=== PATIENT | female | born 1965 | race Caucasian/White ===

== ENCOUNTER 2020-04-24 07:07 | Outpatient (CLI) | payer OTHER, SELFPAY ==
[2020-04-25 12:28] LABS: COVID-19 RT-PCR Result NEGATIVE (Negative)
== END 2020-04-24 07:27 ==
PROVIDERS: Visit Provider Family Medicine
DX: Z11.59 Encounter for screening for other viral diseases (principal); R05 Cough
CPT/HCPCS: U0003

== ENCOUNTER 2020-12-05 02:54 | Observation (INO) | payer OTHER, SELFPAY ==
[2020-12-05] VITALS (24 sets, daily range): BP systolic 91–153; BP diastolic 51–93; PULSE 66–84; RESP 11–24; TEMP 36.3–37.4; O2SAT 96–100
--- NOTE | 2020-12-05 03:00 | DI.CT_ITS ---
EXAM: CT ABDOMEN PELVIS W CLINICAL HISTORY: right lower abdomen pain. TECHNIQUE: Imaging Protocol: Axial computed tomography images with coronal and sagittal reformatted images were created and reviewed CONTRAST MATERIAL: Intravenous: Omnipaque 100cc Oral: None COMPARISON: No exams were available for comparison FINDINGS: VISUALIZED LUNG BASES: No nodules nor pleural effusions evident. ABDOMEN: LIVER: There are no focal hepatic lesions evident . GALLBLADDER/BILIARY: No obvious gallbladder pathology. CBD is not dilated. PANCREAS: No evidence of pancreatic mass nor dilatation of the pancreatic duct. SPLEEN: Spleen is not enlarged. No obvious intrasplenic lesions. Splenic and portal veins are paten t. ADRENALS: There are no significant adrenal masses. KIDNEYS:No cysts evident. No solid renal masses. No calculi nor hydronephrosis.. ABDOMINAL AORTA: Abdominal aorta is not enlarged. LYMPH NODES:There is no retroperitineal nor paraaortic adenopathy. ABDOMINAL WALL/GI: No evidence of significant anterior abdominal wall hernia. PELVIS: GI: The appendix is swollen-abnormal appearing. It exhibits a diameter of 10 millimeters. Suspiciou s for appendicitis. There is also some surrounding fluid just in a in this region. No distinct absc ess.No evidence of sigmoid diverticulitis. LYMPH NODES: There is no intrapelvic nor inguinal adenopathy. REPRODUCTIVE: Age-appropriate URINARY BLADDER: No calculi nor obvious masses evident OSSEOUS: No significant osseous lesions. Dilated parauterine veins are noted in both sides of the pelvis, more so on the left side and this dr ains into a prominent left gonadal vein which itself drains into the pre aortic left renal vein. Thi s may represent pelvic congestion syndrome. IMPRESSION: 1. Findings are consistent with acute appendicitis. There is small amount of fluid around the append ix and in the cul-de-sac. 2. Pelvic congestion syndrome RADIATION DOSE DELIVERED: 540.59mGy.cm Total DLP DATA REPOSITORY: All CT scans at this facility are submitted to the National Radiology Data Registry (NRDR) Dose Index Registry (DIR) with the [employer] (ACR). RADIATION OPTIMIZATION: All CT scans at this facility use at least one of these dose optimization te chniques: automated exposure control; mA and/or kV adjustment per patient size (includes targeted exa ms where dose is matched to clinical indication); or iterative reconstruction.
[2020-12-05 03:39] LABS: Abs Immature Grans 0.03 10^3/uL (0.0-0.06); Absolute Basophil Count 0.09 10^3/uL (0.0-0.2); Absolute Eosinophil Count 0.17 10^3/uL (0.0-0.7); Absolute Monocyte Count 0.88 10^3/uL (0.1-0.8); Basophils % 0.8; Eosinophils % 1.5; HGB 11.7 g/dL (11.2-15.7); Immature Grans % 0.3; Lymphocytes % 12.5; MCH 32.1 pg (27.0-33.0); MCHC 33.4 % (32.0-36.0); MCV 95.9 fL (80-95); MPV 9.9 fL (8.0-11.0); Monocytes % 7.9; Nucleated RBC 0 %; Platelet Count 231 10^3/uL (130-400); RBC 3.65 10^6/uL (3.93-5.22); RDW 13.6 % (11.7-14.6); RDW-SD 48.4 fL; WBC 11.16 10^3/uL (4.4-10.8)
--- NOTE | 2020-12-05 03:40 | ED.GENADUL_ITS ---
Discharge Plan Disposition Patient Disposition: [facility] INPATIENT Condition: Stable Discharge Details Chief Complaint: Abd Prob Clinical Impression: Acute appendicitis Primary Care Provider: Loraine,Local ED Provider: Paul Romero Home Meds and New Rx's Prescriptions: No Action valacyclovir 500 mg Tablet 500 mg PO DAILY RF: 0 rizatriptan 10 mg Tablet,Disintegrating 10 mg PO PRN PRNRF: 0 pantoprazole 40 mg Tablet,Delayed Release (Dr/Ec) 40 mg PO BID RF: 0 bupropion HCl 300 mg Tablet Extended Release 24 Hr 300 mg PO DAILY RF: 0 nitrofurantoin 50 mg Capsule 50 mg PO PRN PRNRF: 0 Medical Decision Making 55 yo female who denies prior abdominal surgery comes in with mid to right lower abdomen pain since yesterday afternoon. Denies vomit, fevers or urinary symptoms nor chest pain or dyspnea. She denies having pain like this in the past. She localizes the pain to the right lower abdomen on exam and is tender here with some mild tenderness in the ruq, no pompa's sign and no peritoneal findings. Concern for possible appendicitis, will obtain labs and ct. No pain out of proportion to exam so doubt mesenteric ischemia pt remains stable, ct confirms appendicitis, spoke with Dr. Mejias who accepts for admission Differential Diagnosis Differential Diagnosis: appendicitis, kidney stone Imaging Data Radiologic Study: Attestation: I personally reviewed and interpreted this imaging study as follows: Imaging: X-Ray Radiologist's impression: appendicitis Lab Data Lab results reviewed: Yes I reviewed the patient's lab results. HPI General Mode of arrival: ambulatory . Date/Time Provider Initiated Documentation: 12/05/20 02:59 . Limitations to Documentation: no limitations . Information obtained by: patient . History of Present Illness 55 year old F presents to the emergency department with the chief complaint of abdominal pain, described as moderate, and it has been constant. No relieving factors improve symptom(s), No exacerbating factors reported . Patient notes no other symptoms.. Patient did receive the following treatments prior to arrival, none Related Data Home Medications Medication Instructions Recorded Confirmed bupropion HCl 300 mg PO DAILY 12/05/20 12/05/20 nitrofurantoin 50 mg PO PRN PRN 12/05/20 12/05/20 pantoprazole 40 mg PO BID 12/05/20 12/05/20 rizatriptan 10 mg PO PRN PRN 12/05/20 12/05/20 valacyclovir 500 mg PO DAILY 12/05/20 12/05/20 General Stated Complaint: Abd Prob DIYA: 3 Review of Systems All systems reviewed & are unremarkable except as noted in HPI and below Constitutional Constitutional: Denies chills, Denies fever(s) and Denies weakness Cardiovascular Cardiovascular: Denies chest pain and Denies dyspnea Respiratory Respiratory: Denies cough and Denies dyspnea Gastrointestinal Gastrointestinal: Denies vomiting Genitourinary Genitourinary: Denies dysuria Neurologic Neurologic: Denies weakness PFSH Social History Smoking/Tobacco Use Status: Never Smoking risk assessment performed?: Yes Alcohol Intake: current Alcohol Intake frequency: a few times a month Substance use type: does not use Do you feel safe at home: Yes Exam Const General: no acute distress Orientation: alert HENMT Head: normal to inspection Ears: external ears normal General nose exam: external nose normal Mouth: moist mucous membranes Eyes General: appearance normal, both eyes and all related structures Neck Neck: normal visual inspection Resp Effort & Inspection: normal respiratory effort and able to speak in complete sentences Cardio Rate: regular rate GI Palpation: soft, not rigid and tender Skin General skin exam: no rashes or lesions noted Neuro General: patient alert and patient oriented x3 Extrem General: normal to inspection Psych Mental Status: mental status grossly normal Course Vital Signs Vital signs: Vital Signs Temperature 36.5 C 12/05/20 03:00 Temperature 36.5 C 12/05/20 03:00 Temperature Source Tympanic 12/05/20 03:00 Respiratory Effort Non-Labored 12/05/20 03:00 Pain Level 5 12/05/20 03:00
[2020-12-05 03:42] LABS: Absolute Neutrophil Count 8.59 10^3/uL (1.2-6.7)
[2020-12-05] MEDS: Normal Saline - Diluent 50 ML VIAL IV (03:47)
[2020-12-05] MEDS: Normal Saline Flush 10 ML SYR IVP ×3 (03:47→18:23)
[2020-12-05 03:50] LABS: ALT 34 U/L (14-59); AST 19 U/L (15-37); Albumin 3.9 g/dL (3.4-5.0); Alkaline Phosphatase 59 U/L (46-116); Anion Gap 9.5 mmol/L (3-11); BUN 17 mg/dL (7-18); Bilirubin, Direct 0.1 mg/dL (0.0-0.2); Bilirubin, Total 0.5 mg/dL (0.2-1.0); CO2 27.5 mmol/L (21.0-32.0); CREATININE 0.9 mg/dL (0.55-1.02); Calcium 9.2 mg/dL (8.5-10.1); Chloride 104 mmol/L (98-107); Glucose 121 mg/dL (74-106); Lipase 105 U/L (73-393); Potassium 3.6 mmol/L (3.5-5.1); Sodium 141 mmol/L (136-145); Total Protein 7.3 g/dL (6.4-8.2)
[2020-12-05 03:50] LABS: Bilirubin Negative (Negative); Blood Trace-intact (Negative); Clarity Clear (Clear); Glucose Negative (Negative); Ketones Negative (Negative); Leukocyte Esterase Negative (Negative); Nitrite Negative (Negative); Specific Gravity 1.015 (1.005-1.025); Urobilinogen 0.2 EU/dL (Up TO 0.2)
[2020-12-05 03:53] LABS: INR 1.1 (0.9-1.1); PTT Activated 25.6 sec (21.0-27.5); Prothrombin Time 10.7 sec (9.3-11.0)
[2020-12-05 04:01] LABS: Bacteria Rare HPF (Negative); C & S Indicated? No; Casts Negative LPF (Negative); Crystals Negative HPF (Negative); Epithelial Cells Rare HPF (Negative); Mucus Negative (Negative); RBC 0-2 HPF (0-2); WBC 0-2 HPF (0-5)
--- NOTE | 2020-12-05 04:09 | DI.VRAD_ITS ---
Addendum created by Popeye Falcon MD on 12/05/2020 4:45:46 AM EDT: THIS REPORT CONTAINS FINDINGS THAT MAY BE CRITICAL TO PATIENT CARE. The findings were verbally communicated via telephone conference with Paul Romero at 4:45 AM EDT on 12/05/2020. The findings were acknowledged and understood. Initial report created on 12/05/2020 4:09:17 AM EDT: PROCEDURE INFORMATION: Exam: CT Abdomen And Pelvis With Contrast Exam date and time: 12/05/2020 3:36 AM Age: 55 years old Clinical indication: Other: Plq ans epigastric pain; Patient HX: Rlq pain and mid abdominal pain below sternum down through pelvis TECHNIQUE: Imaging protocol: Computed tomography of the abdomen and pelvis with contrast. Contrast material: VISIPAQUE 320; Contrast volume: 77 ml; Contrast route: INTRAVENOUS (IV); COMPARISON: No relevant prior studies available. FINDINGS: Liver: Normal. No mass. Gallbladder and bile ducts: Normal. No calcified stones. No ductal dilation. Pancreas: Normal. No ductal dilation. Spleen: Normal. No splenomegaly. Adrenal glands: Normal. No mass. Kidneys and ureters: Normal. No hydronephrosis. Stomach and bowel: Prominent small bowel loops in the pelvis may represent mild ileus No obstruction. No mucosal thickening. Appendix: Abnormally thickened inflamed appendix measuring up to 1 cm noted in the right lower quadrant axial images 57-63 Intraperitoneal space: Small fluid in the right lower quadrant and pelvis. No free air. No significant fluid collection. Vasculature: Unremarkable. No abdominal aortic aneurysm. Lymph nodes: Unremarkable. No enlarged lymph nodes. Urinary bladder: Unremarkable as visualized. Reproductive: Prominent parametrial vessels noted and dilatation of the left gonadal vein Bones/joints: Unremarkable. No acute fracture. Soft tissues: Unremarkable. IMPRESSION: Acute appendicitis as described without gross perforation or abscess. Small fluid in the pelvis/right lower quadrant Question pelvic congestion syndrome Dictated and Authenticated by: Popeye Falcon MD. Ordering:ALICIA [place] MD
[2020-12-05] MEDS: PIPERACILLIN/TAZO 4.5 GM in Normal Saline 100 ML IVPB (04:35)
[2020-12-05 04:41] LABS: Source Nasal/Nares
[2020-12-05 05:24] LABS: COVID-19 PCR Negative (Negative)
[2020-12-05] MEDS: Normal Saline 1,000 ML 150 ML IV ×3 (06:18→22:54)
--- NOTE | 2020-12-05 09:05 | HPE_ITS ---
Date of service: 12/05/20 Time of Service: 09:05 Assessment and Plan Assessment and plan (1) Acute appendicitis: Status: Acute Assessment and plan: A// Patient is NPO Continue Zosyn for empirical treatment IV hydration Ordered suppository for constipation. Discussed the diagnosis and plan of treatment with the patient regarding acute appendicitis of laparoscopic appendectomy. Discussed the potential risks to include bleeding, infection, post-operative abscess. Questions were answered to patient satisfaction and she wishes to proceed. P// laparoscopic Appendectomy. I personally interviewed and examined pt, imaging and labs. Consulted face to face w radiologist. Pt has subacute appendicitis. There is no sign of perforation on imaging or exam. I counselled pt regarding need for laparoscopic appendectomy and that we should proceed today. There is a small chance that incisional appendectomy may be required. The anticipated post op course is outlined. Possible complications including infection, bleeding , injury to other organs , pneumonia, blood clots are among those discussed. There is a chance that abscess can occur post op- about 5% of time w nonperf and 20% in perf situation. Patients questions are addressed to satisfaction and consent obtained. Ge Dunham MD History of Present Illness History of Present Illness Chief Complaint: Acute Appendicitis Narrative: 55 y/o female with a history of GERD presented to the ER with a 24 hour history of abdominal pain that localized to the RLQ. CT scan was remarkable for acute appendicitis. She was given a dose of Zosyn and admitted to the surgical service. She denies any prior surgeries. She denies any chest pain, palpitations, dyspnea or dyspnea with exertion. Review of Systems Constitutional Constitutional: Denies chills and Denies difficulty sleeping Eyes Eyes: Denies change in vision ENT Ears, Nose, Mouth, and Throat: Denies dysphagia, Denies neck pain, Denies odynophagia and Denies sore throat Cardiovascular Cardiovascular: Denies chest pain, Denies palpitations, Denies dyspnea and D enies dyspnea on exertion Respiratory Respiratory: Denies cough, Denies dyspnea, Denies dyspnea on exertion and Denies wheezing Gastrointestinal Gastrointestinal: Reports abdominal pain, Denies melena, Denies hematochezia, Denies change in bowel habits, Reports constipation, Denies dysphagia, Denies diarrhea and Denies odynophagia Genitourinary Genitourinary: Denies urinary incontinence and Denies urinary hesitancy Musculoskeletal Musculoskeletal: Denies neck pain Integumentary/Breasts Skin/Breast: Denies bleeding lesions Endocrine Endocrine: Denies palpitations Hematologic/Lymphatic Hematologic/Lymphatic: Denies easy bleeding and Denies easy bruising Allergic/Immunologic Allergic/Immunologic: Denies wheezing PFSH Social History Smoking/Tobacco Use Status: Never Smoking risk assessment performed?: Yes Alcohol Intake: current Alcohol Intake frequency: a few times a month Substance use type: does not use Do you feel safe at home: Yes Meds Allergies and Home Medications Allergies Allergy/AdvReac Type Severity Reaction Status Date / Time miconazole AdvReac Itching Unverified 12/05/20 05:00 [From Monistat 1 Combo Pack] Penicillins AdvReac Skin Rash Unverified 12/05/20 05:00 Sulfa (Sulfonamide AdvReac Skin Rash Unverified 12/05/20 05:00 Antibiotics) Home Medications Medication Instructions Recorded Confirmed Type bupropion HCl 300 mg PO DAILY 12/05/20 12/05/20 History nitrofurantoin 50 mg PO PRN PRN 12/05/20 12/05/20 History pantoprazole 40 mg PO BID 12/05/20 12/05/20 History rizatriptan 10 mg PO PRN PRN 12/05/20 12/05/20 History valacyclovir 500 mg PO DAILY 12/05/20 12/05/20 History Exam Const General: cooperative, healthy appearing and no acute distress Orientation: alert and oriented x3 HENMT Head: normal to inspection, no abrasions and no raccoon eyes Ears: hearing grossly normal bilaterally General nose exam: external nose normal and no nasal discharge noted Resp Effort & Inspection: normal respiratory effort, no audible wheezes and no cough Auscultation: clear to auscultation bilaterally Cardio Jugular venous pressure: no JVD Rate: regular rate Rhythm: regular rhythm Heart Sounds: S1 normal, S2 normal, no click and no murmurs GI Inspection: normal to inspection and non-distended Palpation: soft, no guarding and tender in the RLQ Auscultation: normal bowel sounds Skin General skin exam: no rashes or lesions noted Neuro General: patient alert, patient oriented x3 and gait normal Cognition: normal cognition Speech: speech normal Results Labs Result diagrams: 12/05/20 03:16 12/05/20 03:16 Labs: Laboratory Results - last 24 hr 12/05/20 12/05/20 12/05/20 03:16 03:16 03:16 WBC 11.16 H RBC 3.65 L Hgb 11.7 Hct 35.0 L MCV 95.9 H MCH 32.1 MCHC 33.4 RDW 13.6 Plt Count 231 MPV 9.9 Immature Gran % 0.3 Neutrophils % 77.0 Lymphocytes % 12.5 Monocytes % 7.9 Eosinophils % 1.5 Basophils % 0.8 Nucleated RBC % 0 Absolute Neutrophils 8.59 H Absolute Lymphocytes 1.40 Absolute Monocytes 0.88 H Absolute Eosinophils 0.17 Absolute Basophils 0.09 PT 10.7 INR 1.1 APTT 25.6 Sodium 141 Potassium 3.6 Chloride 104 Carbon Dioxide 27.5 Anion Gap 9.5 BUN 17 Creatinine 0.9 Estimated GFR/1.73 m2 >= 60.00 Glucose 121 H Calcium 9.2 Magnesium 2.0 Total Bilirubin 0.5 Conjugated Bilirubin 0.1 AST 19 ALT 34 Alkaline Phosphatase 59 Total Protein 7.3 Albumin 3.9 Lipase 105 Urine Color Urine Clarity Urine pH Ur Specific [place] Urine Protein Urine Ketones Urine Blood Urine Nitrite Urine Bilirubin Urine Urobilinogen Ur Leukocyte Esterase Urine RBC Urine WBC Ur Epithelial Cells Urine Crystals Urine Bacteria Urine Casts Urine Mucus Ur Culture Indicated? Urine Glucose COVID-19 Source SARS-CoV-2 (PCR) 12/05/20 12/05/20 03:20 04:19 WBC RBC Hgb Hct MCV MCH MCHC RDW Plt Count MPV Immature Gran % Neutrophils % Lymphocytes % Monocytes % Eosinophils % Basophils % Nucleated RBC % Absolute Neutrophils Absolute Lymphocytes Absolute Monocytes Absolute Eosinophils Absolute Basophils PT INR APTT Sodium Potassium Chloride Carbon Dioxide Anion Gap BUN Creatinine Estimated GFR/1.73 m2 Glucose Calcium Magnesium Total Bilirubin Conjugated Bilirubin AST ALT Alkaline Phosphatase Total Protein Albumin Lipase Urine Color Yellow Urine Clarity Clear Urine pH 6.0 Ur Specific [place] 1.015 Urine Protein Negative Urine Ketones Negative Urine Blood Trace-intact H Urine Nitrite Negative Urine Bilirubin Negative Urine Urobilinogen 0.2 Ur Leukocyte Esterase Negative Urine RBC 0-2 Urine WBC 0-2 Ur Epithelial Cells Rare Urine Crystals Negative Urine Bacteria Rare Urine Casts Negative Urine Mucus Negative Ur Culture Indicated? No Urine Glucose Negative COVID-19 Source Nasal/nares SARS-CoV-2 (PCR) Negative Last Vital Signs Temp 36.6 C 04/14/21 08:19 Pulse 74 12/05/20 08:19 Resp 19 12/05/20 08:19 BP 123/72 12/05/20 08:19 Pulse Ox 98 12/05/20 08:19 COVID-19 Screening Have you, or household traveled for leisure in last 14 days?: No Had IN PERSON contact w/suspected or confirmed C-19 person: No
[2020-12-05] MEDS: Bisacodyl 10 MG SUPP PR (09:15)
[2020-12-05] MEDS: Lactated Ringers 1,000 ML 30 ML IV (10:13)
[2020-12-05] MEDS: PIPERACILLIN/TAZO 3.375 GM in Normal Saline 50 ML IVPB (10:30)
--- NOTE | 2020-12-05 11:02 | APP_PTH ---
PATIENT: Anneliese Ashyb LOC: [id number]#:[id number] AGE/SX: 55/F ROOM: 231 RE12/05/[address]: Marianna Mejias : 1965 BED: A DIS: 12/06/2020 SPEC #: [id number] RECD: 12/05/20 12:47 STATUS: BOGDAN REQ #: [id number] SONDRA: 12/05/20 11:[address]: Ge Dunham DEPT: Surgical Specimen RECD BY: Mary Jackson ENTERED: 12/05/20 12:50 SP TYPE: Appendix OTHR DR: Marianna Mejias Tissues: 1 - APPENDIX NOT INCIDENTAL Procedures: GROSS AND MICRO LEVEL 3 Comments: [id number]
--- NOTE | 2020-12-05 11:31 | ROE_ITS ---
Date of service: 12/05/20 Time of Service: 11:32 Operative Note Operative Note DATE OF PROCEDURE: 12/05/20 PRE-OP DIAGNOSIS: acute appendicitis POST-OP DIAGNOSIS: same PROCEDURE: Laparoscopic Appendectomy SURGEON: Ge Dunham CIRCULAR STUFFER: Ashely El ANESTHESIA TYPE: General LMA/ETT Refer to Anesthesia Record ESTIMATED BLOOD LOSS: 5 PATHOLOGY: other (appendix) COMPLICATIONS: None Patient was transported to: PACU Patient's condition: stable Indications: signs /sxs of appendicitis, CT confirmation same Findings: Nonperforated acute appendicitis Procedure Description: The constellation of history, physical exam, imaging and/or laboratory studies suggest appendicitis. Patient has been counselled regarding surgical treatment and laparoscopic appendectomy has been advised. Risks including bleeding , infection, injury to other organs , failure to identify pathology or alternate etiologies for symptoms are among those discussed. The distinctions between the difficulty of the procedure and of potential rates of complication in the context of perforated versus nonperforated appendicitis is outlined. The potential need for conversion to open, incisional operation is also addressed. . Benefits of appendectomy and alternative treatment with antibiotics alone are discussed. All questions from patient and/or family are addressed. Consent is obtained. DESCRIPTION OF PROCEDURE: The patient was taken to the operating suite and placed on the operating room table in the supine position. General endotracheal anesthesia was induced. Sequential NICK stockings were applied. The abdomen was prepped and draped in a sterile fashion. A periumbilical incision was made and carried into the abdominal cavity with Guerrero technique. An 12 mm trocar site was established. Pneumoperitoneum was induced. The abdomen was inspected. There was no sign of visceral injury due to trocar placement. Two additional 5 mm trocars were placed in the suprapubic and left lower quadrant respectively. There is no sign of diffuse peritonitis. There is a small amount of serous ascites fluid collected in the pelvis. Right adnexa and dome of uterus are without obvious abnormality. Left adnexa not inspected. The appendix is turgid and inflamed but there is no significant exudate and no sign of perforation. The appendix is coiled and adherent to itself and to its mesoappendix as well as to the distal several centimeters of ileum. Some inflammatory adhesions are easily dismantled with gentle blunt dissection. The mesoappendix was taken down with electrocautery. Hemostasis was maintained throughout. The base the appendix and its junction with cecum was clearly identified. A 2-0 Vicryl Endoloop is placed about the appendix and utilized to ligate the appendix at its junction with cecum. A 6 mm long appendiceal stump is left and the appendix is excised and placed within a specimen bag. A small amount of irrigant is used to cleanse the pericecal area. Hemostasis was again assured and the appendiceal stump appears well controlled. The specimen was placed within a retrieval bag and removed without incident via the periumbilical port. Trocars were removed under direct vision. There is no bleeding from the anterior abdominal wall. Midline fascial defect is closed with [id number] 0 Vicryl suture. Each trocar site was closed at skin level with subcuticular 4-0 Monocryl. The patient tolerated the procedure well. There were no evident complications. The patient was in satisfactory condition throughout. All counts were reported as correct. Several intraoperative photographs were taken during the procedure entire entered into the patient's chart in a separate file.
--- NOTE | 2020-12-05 11:47 | INITIAL_ITS ---
- If Service Date Differs Date of service: 12/05/20 Time of Service: 11:48 Care Management Initial Assess REASON FOR HOSPITALIZATION:: Appendicitis PAST MEDICAL HISTORY/PAST SURGICAL HISTORY:: No significant medical/surgical history. PREVIOUS FUNCTIONAL STATUS/SOCIAL/FAMILY SUPPORTS:: Anneliese lives in [place], [place] with her , Cyrus. They have a daughter, Doreen, who lives in [place]. She is independent at baseline. CURRENT FUNCTIONAL STATUS:: Anneliese was in the OR when CM attempted to visit. CM will continue to follow, and will check in on the patient later in the day to assess for needs. ADVANCE DIRECTIVES:: None on file. Has patient been provided with info about the portal/API?: No Did the patient sign up for the portal?: No CODE STATUS:: Full Code INSURANCE COVERAGE / FINANCIAL ISSUES:: [employer] CURRENT HOME/COMMUNITY SERVICES/EQUIPMENT:: No current services or equipment known. PRIMARY CARE PHYSICIAN:: No local PCP listed. POTENTIAL DISCHARGE NEEDS:: Follow up appointments. PATIENT/FAMILY EDUCATION NEEDS:: Review discharge instructions regarding activity and medications post operatively, discussion of self care needs. ANTICIPATED BARRIERS TO DISCHARGE:: None identified. TRANSPORTATION:: Via private vehicle by family. PLAN:: Anneliese will go to the OR today for a laparascopic appendectomy today. She will likely discharge home after surgery with no services. She will follow up with her surgeon, her PCP, and her discharge plan of care. CM will continue to follow.
[2020-12-05] MEDS: HYDROmorphone 2 MG/ML VIAL IVP (11:59)
[2020-12-05] MEDS: traMADol 50 MG TAB PO ×2 (13:16→21:33)
[2020-12-05] MEDS: Acetaminophen 325 MG TAB 650 MG PO ×2 (13:17→21:31)
--- NOTE | 2020-12-05 15:04 | DSE_ITS ---
DS: Diagnosis Discharge Diagnosis (1) Acute appendicitis: Status: Acute Discharge Plan Disposition Condition: Stable Discharge Details Reason For Visit: APPENDICITIS Admit Date/Time: 12/05/20 04:15 Admit Provider: Marianna Mejias Attending Provider: Marianna Mejias Primary Care Provider: Loraine,Local Home Meds and New Rx's Prescriptions: No Action valacyclovir 500 mg Tablet 500 mg PO DAILY RF: 0 rizatriptan 10 mg Tablet,Disintegrating 10 mg PO PRN PRNRF: 0 pantoprazole 40 mg Tablet,Delayed Release (Dr/Ec) 40 mg PO BID RF: 0 bupropion HCl 300 mg Tablet Extended Release 24 Hr 300 mg PO DAILY RF: 0 nitrofurantoin 50 mg Capsule 50 mg PO PRN PRNRF: 0 DS: Data Vitals/I&O Vitals and I&O: Vital Signs Temperature 98.1 F 12/05/20 13:39 Temperature Source Tympanic 12/05/20 13:39 Pulse 83 12/05/20 13:39 Pulse Rhythm Regular 12/05/20 05:20 Respiratory Rate 18 12/05/20 13:39 Respiratory Effort Non-Labored 12/05/20 07:55 Respiratory Depth Normal 12/05/20 05:20 Respiratory Pattern Normal 12/05/20 07:55 Blood Pressure 100/72 12/05/20 13:39 Blood Pressure Mean 103 12/05/20 04:37 Pulse Oximetry 98 12/05/20 13:39 Oxygen Delivery Method Room Air 12/05/20 13:39 Oxygen Flow Rate 0 12/05/20 13:39 Pain Level 5 12/05/20 13:16 Intake & Output 12/04/20 12/05/20 12/05/20 23:59 11:59 23:59 Intake Total 1202.5 / 1352.5 150 / 1352.5 Output Total 500 / 500 Balance 702.5 / 852.5 150 / 852.5 Weight 49.442 kg Intake: IV 1202.5 / 1352.5 150 / 1352.5 Output: Urine 500 / 500 Estimated Blood Loss 0 / 0 Other: Urine Color Yellow Urine Appearance Clear Urine Odor Normal Stool Size Small Stool Characteristics Hard Emesis Description None None Voiding Methods Toilet Data Completed and Pending Labs on day of discharge: Labs from last 24 hours 12/05/20 12/05/2012/05/21 04:19 03:20 03:16 WBC RBC Hgb Hct MCV MCH MCHC RDW Plt Count MPV Immature Gran % Neutrophils % Lymphocytes % Monocytes % Eosinophils % Basophils % Nucleated RBC % Absolute Neutrophils Absolute Lymphocytes Absolute Monocytes Absolute Eosinophils Absolute Basophils PT 10.7 INR 1.1 APTT 25.6 Sodium Potassium Chloride Carbon Dioxide Anion Gap BUN Creatinine Estimated GFR/1.73 m2 Glucose Calcium Magnesium Total Bilirubin Conjugated Bilirubin AST ALT Alkaline Phosphatase Total Protein Albumin Lipase Urine Color Yellow Urine Clarity Clear Urine pH 6.0 Ur Specific [place] 1.015 Urine Protein Negative Urine Ketones Negative Urine Blood Trace-intact H Urine Nitrite Negative Urine Bilirubin Negative Urine Urobilinogen 0.2 Ur Leukocyte Esterase Negative Urine RBC 0-2 Urine WBC 0-2 Ur Epithelial Cells Rare Urine Crystals Negative Urine Bacteria Rare Urine Casts Negative Urine Mucus Negative Ur Culture Indicated? No Urine Glucose Negative COVID-19 Source Nasal/nares SARS-CoV-2 (PCR) Negative 12/05/20 12/05/20 03:16 03:16 WBC 11.16 H RBC 3.65 L Hgb 11.7 Hct 35.0 L MCV 95.9 H MCH 32.1 MCHC 33.4 RDW 13.6 Plt Count 231 MPV 9.9 Immature Gran % 0.3 Neutrophils % 77.0 Lymphocytes % 12.5 Monocytes % 7.9 Eosinophils % 1.5 Basophils % 0.8 Nucleated RBC % 0 Absolute Neutrophils 8.59 H Absolute Lymphocytes 1.40 Absolute Monocytes 0.88 H Absolute Eosinophils 0.17 Absolute Basophils 0.09 PT INR APTT Sodium 141 Potassium 3.6 Chloride 104 Carbon Dioxide 27.5 Anion Gap 9.5 BUN 17 Creatinine 0.9 Estimated GFR/1.73 m2 >= 60.00 Glucose 121 H Calcium 9.2 Magnesium 2.0 Total Bilirubin 0.5 Conjugated Bilirubin 0.1 AST 19 ALT 34 Alkaline Phosphatase 59 Total Protein 7.3 Albumin 3.9 Lipase 105 Urine Color Urine Clarity Urine pH Ur Specific [place] Urine Protein Urine Ketones Urine Blood Urine Nitrite Urine Bilirubin Urine Urobilinogen Ur Leukocyte Esterase Urine RBC Urine WBC Ur Epithelial Cells Urine Crystals Urine Bacteria Urine Casts Urine Mucus Ur Culture Indicated? Urine Glucose COVID-19 Source SARS-CoV-2 (PCR) PFSH Social History Smoking/Tobacco Use Status: Never Smoking risk assessment performed?: Yes Alcohol Intake: current Alcohol Intake frequency: a few times a month Substance use type: does not use Do you feel safe at home: Yes
[2020-12-05] MEDS: Ketorolac 15 MG/ML VIAL IVP (18:23)
[2020-12-05] MEDS: Pantoprazole 40 MG TABCR PO (21:32)
[2020-12-06] MEDS: Ketorolac 15 MG/ML VIAL IVP ×2 (00:53→06:28)
[2020-12-06 03:29] VITALS: BP 109/63; PULSE 73; RESP 18; TEMP 36.6; O2SAT 97
[2020-12-06] MEDS: Acetaminophen 325 MG TAB 650 MG PO (05:09)
[2020-12-06] MEDS: Normal Saline 1,000 ML 150 ML IV (05:13)
[2020-12-06 07:38] VITALS: BP 119/71; PULSE 70; RESP 20; TEMP 36.8; O2SAT 99
[2020-12-06] MEDS: buPROPion-XL 150 MG TABCR 300 MG PO (07:47)
[2020-12-06] MEDS: valACYclovir 500 MG TAB PO (07:47)
[2020-12-06] MEDS: Pantoprazole 40 MG TABCR PO (07:47)
[2020-12-06] MEDS: Polyethylene Glycol 3350 17 GM PACKET PO (07:48)
[2020-12-06] MEDS: traMADol 50 MG TAB PO (07:48)
--- NOTE | 2020-12-06 10:45 | PGE_ITS ---
Date of Service Date of service: 12/06/20 Time of Service: 10:45 Assessment and Plan Assessment and plan (1) Acute appendicitis: Status: Acute Assessment and plan: A// Patient is postop day 1 after laparoscopic appendectomy She is doing well. She is okay for discharge.. P// 1?Discharge home 2?ambulate, avoid any activity which causes straining of abdominal muscles for about 1 month. 3?instructed for observation and care of incisions 4-patient advised to use over the counter pain medicine 5?will dispense Ultram prescription which she can have filled as needed 6?patient lives about 3 hours away. She may follow-up with her primary care physician in about 7-10 days. 7?she understands that if she develops fever, chills, increasing abdominal pain or nausea or any other concerns she should promptly consult with her physician or be seen in a nearby emergency department. Ge Dunham MD Subjective Subjective Interval history since last seen: Postop day 1?laparoscopic appendectomy for acute appendicitis. Patient out of bed, up in chair. Feels improved from preoperative condition. Using minimal pain medication. Low abdomen pain and incisions okay?feels her diaphragm has mild discomfort. Voiding okay. Has had light breakfast without nausea or emesis. Feels ready for discharge home. Exam Narrative Exam Narrative: Alert engaged and conversational. No respiratory laboring or audible wheeze. Abdomen nondistended. Tenderness near the trocar sites appropriate to postop day 1. Trocar sites each with modest ecchymoses. No sign of hematoma. Skin g lue intact. Objective Last Vital Signs Temp 98.2 F 12/06/20 07:38 Pulse 70 12/06/20 07:38 Resp 20 12/06/20 07:38 BP 119/71 12/06/20 07:38 Pulse Ox 99 12/06/20 07:38
--- NOTE | 2020-12-06 11:08 | W.PM.DS.N ---
Date of service: 12/06/20 Time of Service: 11:10 DS: Diagnosis Discharge Diagnosis (1) Acute appendicitis: Status: Acute Discharge Plan Disposition Patient Disposition: HOME Condition: Stable Discharge Details Reason For Visit: APPENDICITIS Admit Date/Time: 12/05/20 04:15 Admit Provider: Marianna Mejias Attending Provider: Marianna Mejias Primary Care Provider: Loraine,[facility] Course Hospital Course: 55-year-old lady admitted in the lead setter hours of 12/05/2020 with a constellation of symptoms and imaging studies consistent with acute appendicitis. Her physical exam was pertinent for right lower quadrant abdominal tenderness although there was lack of guarding. Laparoscopic appendectomy was carried out in the morning of 12/05. A nonperforated but acutely inflamed appendix was removed uneventfully. Patient had no unusual events in her first 24 hours postop. On postop day 1 she is out of bed and ambulating. Has minor abdominal discomfort. Tolerating light diet. Requiring little analgesics. Patient lives about 3 hours from here. She feels ready for discharge. She will initially stop at her daughter's home with simply area. From she would like to follow-up with her own primary care physician in 7-10 days. She has been instructed on signs and symptoms which may signal complications. These include things such as fever, chills, increasing abdominal pain, persistent nausea and vomiting, redness or tenderness at incision sites. She is aware of a small chance of developing abdominal abscess and the anticipated signs and symptoms which might be present if this occurs. Patient would like to avoid narcotic pain medicines. She intends on using [id number] pain medications. A prescription will be dispensed for Ultram in case she needs something more potent. She is cautioned to avoid lifting which causes abdominal straining. Unrestricted activity anticipated in 4 weeks. Home Meds and New Rx's Prescriptions: New tramadol 50 mg Tablet 50 mg PO Q6H PRN PRN (Reason: Pain) Qty: 10 RF: 0 Continued valacyclovir 500 mg Tablet 500 mg PO DAILY RF: 0 rizatriptan 10 mg Tablet,Disintegrating 10 mg PO PRN PRNRF: 0 pantoprazole 40 mg Tablet,Delayed Release (Dr/Ec) 40 mg PO BID RF: 0 bupropion HCl 300 mg Tablet Extended Release 24 Hr 300 mg PO DAILY RF: 0 nitrofurantoin 50 mg Capsule 50 mg PO PRN PRNRF: 0 Discharge Instructions Instructions: Laparoscopic Appendectomy (GEN) Activity:: Ambulate frequently Equipment/Supplies:: No Equipment Needed Diet:: As Tolerated Discharge Orders Discharge Orders: Discharge Order (Routine); Ordered 12/06/20 Ordered By: Ge Dunham Discharge Data Discharge Date/Time-TO BE ENTERED AT DEPARTURE: 12/06/20 11:27 Discharge Comment: op note and dc summary to patient so she can hand DS: Summary Time Spent with Patient providing and/or coordinating discharge services: Less than 30 minutes Specific discharge activities: Encouraged ambulation. Avoid physical activity which causes straining of abdominal muscles for 1 month Status at Discharge Functional status at discharge: independent ambulation Overall status at discharge: patient is progressing back to baseline Mental Status: mental status grossly normal Speech and Movement: speech and movement normal Mood: congruent mood Affect: normal affect Quality: VTE Deep Vein Thrombosis/Pulmonary Embolism Present on Admission: No Exam Narrative Exam Narrative: Awake alert conversational and engaged. Appears comfortable. Respiratory?no labored breathing. No audible wheezes. Cardio?no tachycardia blood pressure stable Abdomen?minimally tender at trocar sites. Trocar sites with modest ecchymoses but otherwise unremarkable. Extremity?no edema Psych Mental Status: mental status grossly normal Speech and Movement: speech and movement normal Mood: congruent mood Affect: normal affect DS: Data Vitals/I&O Vitals and I&O: Vital Signs Temperature 98.2 F 12/06/20 07:38 Temperature Source Skin 12/06/20 07:38 Pulse 70 12/06/20 07:38 Pulse Rhythm Regular 12/06/20 07:51 Respiratory Rate 20 12/06/20 07:38 Respiratory Effort Non-Labored 12/06/20 07:50 Respiratory Depth Normal 12/06/20 07:51 Respiratory Pattern Normal 12/06/20 07:51 Blood Pressure 119/71 12/06/20 07:38 Blood Pressure Mean 103 12/05/20 04:37 Pulse Oximetry 99 12/06/20 07:38 Oxygen Delivery Method Room Air 12/06/20 07:38 Oxygen Flow Rate 0 12/06/20 07:38 Pain Level 6 12/06/20 07:48 Intake & Output 12/05/20 12/05/20 12/06/20 11:59 23:59 11:59 Intake Total 1202.5 / 3227.5 2025.0 / 3227.5 1187.5 / 1187.5 Output Total 500 / 1000 500 / 1000 850 / 850 Balance 702.5 / 2227.5 1525.0 / 2227.5 337.5 / 337.5 Weight 49.442 kg Intake: IV 1202.5 / 2747.5 1545.0 / 2747.5 947.5 / 947.5 Oral 480 / 480 240 / 240 Output: Urine 500 / 1000 500 / 1000 850 / 850 Estimated Blood Loss 0 / 0 Other: Urine Color Yellow Yellow Yellow Urine Appearance Clear Clear Clear Urine Odor Normal Comment Independent Stool Size Small Stool Characteristics Hard Emesis Description None None Voiding Methods Toilet Toilet Toilet [facility] Social History Smoking/Tobacco Use Status: Never Smoking risk assessment performed?: Yes Alcohol Intake: current Alcohol Intake frequency: a few times a month Substance use type: does not use Do you feel safe at home: Yes
--- NOTE | 2020-12-06 18:34 | PDOC.CMDIS ---
- If Service Date Differs Date of service: 12/06/20 Time of Service: 18:34 LACE Index Scoring Tool - Questions: Length of Stay (in days): 1 Acuity (Admit via E.D.?): Yes E.D. Visits: 1 - Answers: Total Score: 5 Risk of Readmission: Low Risk Care Management Discharge Reason for Hospitalization: Appendicitis Discharge Plan: Anneliese will return to her daughter's house locally today, and will return home after a few days of rest. She will follow up with her local PCP, Helene Lebron in [place], [place]. CM faxed medical chart to her PCP office, at Anneliese's request. Her family drove her home via private vehicle. She reports feeling ready for discharge and happy to be returning to the care of her family. Patient/Family Education Needs: Review discharge instructions regarding activity levels and medications, discussion of self care needs including ask me three.
== END 2020-12-06 13:20 | disposition home or self-care (01) ==
LOC: ER 04:34 → MS 05:17
PROVIDERS: Surgery Vascular Surgery; Admitting Provider Surgery; Emergency Provider Emergency Medicine; Visit Provider Surgery
PROC: 0DTJ4ZZ Resection of Appendix, Percutaneous Endoscopic Approach (ICD-10-PCS; CPT 44970; principal; 2020-12-05 09:00)
DX: K35.890 Other acute appendicitis without perforation or gangrene (principal)
CPT/HCPCS: 44970; 36415; 80053; 83690; 87635; 96365; 99222; 99238; 99285; NC; 74177; 81003; 81015; 82248; 83735; 85025; 85610; 85730; 88304; G0378; J1100; J1885; J2001; J2250; J2405; J2543